=== PATIENT | female | born 1935 | race African-American/Black ===

== ENCOUNTER 2016-10-13 16:53 | Inpatient (IN) | payer OTHER, MEDICAID ==
--- NOTE | 2016-10-13 17:12 | ED Physician Chart ---
Chief Complaint/HPI - Patient Information Date Seen:: 10/13/16 Time Seen:: 17:00 Chief Complaint:: physical aggression History of Present Illness:: Patient was placed on a psychiatric hold and her longterm facility. It states on the hold the patient is paranoid and has been physically aggressive striking others. Historian:: Patient, EMS Review:: Nurse's Note Reviewed Review of Systems - Review of Systems General/Constitutional: No fever, No chills Skin: No skin lesions Head: No headache Eyes: No loss of vision ENT: No earache, No sore throat Neck: No neck pain Cardio Vascular: No chest pain Pulmonary: No SOB GI: No nausea, No vomiting G/U: No dysuria Musculoskeletal: No bone or joint pain, No muscle pain Endocrine: No polyuria Psychiatric: Prior psych history Hematopoietic: No bruising Allergic/Immuno: No urticaria Neurological: No syncope, Confusion Past Medical History - Past Medical History Past Medical History: HTN, DM, Dementia, Other (peripheral vascular disease; anxiety; psychosis) Family History: Diabetes Melitus Social History: Non Smoker, No Alcohol, Care Facility Surgical History: None Family Medical History - Family Member Mother History Unknown: Yes Physical Exam - Physical Examination General/Constitutional: Well-developed, well-nourished, Alert, No distress Other Gen/Cons comments:: Patient is confused; she does not know the year Head: Atraumatic Eyes: Lids, conjuctiva normal, PERRL Skin: Nl inspection, No rash ENMT: External ears, nose nl, TM canals nl, Nasal exam nl, Oropharynx nl, Tonsils nl Other ENMT comments:: Upper and lower dentures Neck: No nuchal rigidity Respiratory: Nl effort/Exclusion, Clear to Auscultation, No Wheeze/Rhonchi/Rales Cardio Vascular: RRR, No murmur, gallop, rubs GI: No tenderness/rebounding/guarding, No organomegaly, No hernia : No CVA tenderness Extremities: Normal digits & nails Neuro/Psych: No focal deficits Misc: Normal back Labs/Radiology/EKG Results - Lab Results Results: Laboratory Results - last 24 hr 10/13/16 10/13/16 10/13/16 16:23 16:23 16:23 WBC 7.1 RBC 4.44 Hgb 13.3 Hct 39.9 MCV 89.9 MCH 30.1 MCHC Differential 33.5 RDW 12.7 Plt Count 166 MPV 8.3 Neutrophils % 56.4 Lymphocytes % 35.3 Monocytes % 5.9 Eosinophils % 2.2 Basophils % 0.2 Sodium 139 Potassium 3.7 Chloride 107 Carbon Dioxide 26.0 Anion Gap 9.7 BUN 19 Creatinine 1.3 H Est GFR ( Amer) TNP Est GFR (Non-Af Amer) TNP BUN/Creatinine Ratio 14.6 Glucose 118 H Calcium 10.3 Total Bilirubin 0.6 AST 18 ALT 11 Alkaline Phosphatase 190 H Total Protein 7.0 Albumin 4.0 Globulin 3.0 Albumin/Globulin Ratio 1.3 TSH 0.21 L - EKG Interpretations Rate & Rhythm: NSR [place]: left axis Comments:: old anterior-septal [place] ED Septic Shock - . Is Septic Shock (SBP<90, OR Lactate>4 mmol\L) present?: No Reassessment (Disposition) - Reassessment Reassessment Condition:: Unchanged - Diagnosis Diagnosis:: dementia with combative behavior - Patient Disposition Admitted to:: [facility] Admitting Medical Physician:: Jean-Paul Dugan Admitting Psych Physician:: Goldy Gunter Condition at Disposition:: Stable, Unchanged
[2016-10-13 17:31] LABS: % BASOPHILS 0.2 % (0.0-2.0); % EOSINOPHILS 2.2 % (0.0-5.0); % LYMPHOCYTES 35.3 % (20.0-50.0); % MONOCYTES 5.9 % (2.0-10.0); % NEUTROPHILS 56.4 % (40.0-80.0); HEMATOCRIT 39.9 % (35.0-45.0); HEMOGLOBIN 13.3 gm/dL (11.7-16.1); MEAN CELL VOLUME 89.9 fl (81-100); MEAN CORPUSCULAR HEMOGLOBIN 30.1 pg (27.0-31.0); MEAN CORPUSCULAR HGB CONC 33.5 pg (28.0-36.0); MEAN PLATELET VOLUME 8.3 fl; PLATELET COUNT 166 Th/cmm (150-400); RED BLOOD COUNT 4.44 Mil/cmm (3.80-5.20); RED CELL DISTRIBUTION WIDTH 12.7 % (11.5-20.0); WHITE BLOOD COUNT 7.1 Th/cmm (4.8-10.8)
[2016-10-13 17:45] LABS: ALB/GLOB RATIO 1.3 (1.0-1.8); ALKALINE PHOSPHATASE 190 U/L (34-104); ANION GAP 9.7 (7.0-16.0); BILIRUBIN,TOTAL 0.6 mg/dL (0.3-1.0); BUN - UREA NITROGEN 19 mg/dL (7-25); BUN/CREATININE RATIO 14.6; CALCIUM SERUM 10.3 mg/dL (8.6-10.3); CHLORIDE 107 mEq/L (98-107); CREATININE - SERUM 1.3 mg/dL (0.6-1.2); GLUCOSE 118 mg/dL (70-105); POTASSIUM SERUM 3.7 mEq/L (3.5-5.1); SGOT 18 U/L (13-39); SGPT/ALT 11 U/L (7-52); SODIUM SERUM 139 mEq/L (136-145)
[2016-10-13 19:42] LABS: URINE BILIRUBIN NEGATIVE (NEGATIVE); URINE BLOOD NEGATIVE (NEGATIVE); URINE COLOR YELLOW; URINE GLUCOSE (UA) NEGATIVE (NEGATIVE); URINE KETONE TRACE mg/dL (NEGATIVE); URINE PH 6.5; URINE PROTEIN TRACE mg/dL (NEGATIVE)
[2016-10-13 19:43] LABS: URINE BACTERIA FEW /hpf (NONE SEEN); URINE EPITHELIAL CELLS OCCASIONAL /lpf (FEW); URINE RBC 0-2 /hpf (0-5); URINE WBC 0-2 /hpf (0-5)
[2016-10-13] MEDS ORDERED: Magnesium Hydroxide (MOM) 30 mL UDC PO PRN (22:03)
[2016-10-13] MEDS ORDERED: Fleet Enema 135 mL RC SCH (22:15)
--- NOTE | 2016-10-14 04:16 | Admit Criteria Form ---
Admit Criteria Forms - Admit Criteria Diagnosis: PSYCHIATRIC DISORDERS (Place 'X' for any and all applicable criteria): Ongoing inpatient care may be needed for 1 or more of the following(1)(2)(3)(4)( 6)(7)(8): [X]I. Danger to self or others not manageable at lower level of care. [ ]II. Grave disability (eg, inability to perform self care necessary at lower level of care) [ ]III. Agitation or inappropriate behavior interfering with care for primary condition (eg, attempting to discontinue lines or drains prematurely, unable to cooperate with respiratory care) [ ]IV. Severe disability or disorder indicated by ALL of the following: [ ]a) Severe behavioral health disorder-related symptoms or condition indicated by 1 or more of the following: [ ]i) Severe problem with cognition, memory, judgment, or impulse control [ ]ii) Severe clinical manifestations (eg, hallucinations, delusions, other acute psychotic symptoms, silvia, extreme agitation or anxiety) [ ]b) Patient management at lower level of care is not feasible until acute intervention or modification is initiated. Extended stay beyond goal length of stay for the primary condition may be needed until ALLof the following are present(1)(2)(3)(4)7)54)(23): [ ]a) Danger to self or others is absent or manageable at lower level of care [ ]b) Behavior crisis management, including physical or chemical restraints, is required and is not available at a lower level of care. [ ]c) Behavioral symptoms (e.g., agitation, somnolence, inappropriate behavior) are present, and are not manageable at a lower level of care. [ ]d) Patient cannot understand follow-up treatment and crisis plan. [ ]e) Provider and supports are sufficiently available at lower level of care. [ ]f) Patient can participate (e.g., verify absence of plan for harm) and is in needed of monitoring. The original [facility] content created by [facility] [email or web address] has been revised. The portions of the content which have been revised are identified through the use of italic text or in bold, and [facility] [employer] has neither reviewed nor approved the modified material. All other unmodified content is copyright [email or web address]. Please see references footnoted in the original [facility] edition 2017 Admit Criteria Met?: Yes
[2016-10-14] MEDS ORDERED: Fleet Enema 135 mL RC PRN (04:50)
--- NOTE | 2016-10-14 08:11 | Consultation ---
DATE OF CONSULTATION: 10/14/2016 PSYCHIATRIC CONSULT PHYSICIAN: Dr. Dugan. LOMBARDI DEVELOPER: Dr. Frazier. REASON FOR THE CONSULT: Agitation. HISTORY OF PRESENT ILLNESS: The patient is an 81-year-old female who was transferred from a intermediate because of increased agitation and irritability. The patient was admitted to the medical floor because of some irregularity with her heart. The patient has been anxious and easily agitated. The patient also has episodes of yelling and screaming. PAST PSYCHIATRIC HISTORY: The patient has history of dementia. PAST MEDICAL HISTORY: The patient has congestive heart failure. SOCIAL HISTORY: The patient lives in a intermediate. No known alcohol or drug use. MENTAL STATUS EXAM: The patient appears her stated age. Currently, seems to be calmer. Seems to be confused. Thought processes are with poverty of speech, but she seems to be actively responding. The patient did not answer questions regarding hallucinations or delusions, but seemed to be responding talking to self. The patient is alert, but disoriented to time, place, person and situation. Impaired immediate, recent, and remote memories. Poor insight and judgment. ASSESSMENT: PRIMARY DIAGNOSIS: Unspecified diagnosis. TREATMENT PLAN: We will monitor the patient's behavior closely. Also, we will start the patient on a small dose of Risperdal and we will monitor the dose. We will follow up. Thanks, Dr. Dugan. [facility]# [id number]
--- NOTE | 2016-10-14 14:33 | Cardiology ---
10/14/[address] Dugan. M-MODE ECHOCARDIOGRAM: Mitral valve, anterior leaflet of mitral valve shows normal excursion, EF velocity. Posterior leaflet of mitral valve shows normal excursion. Left ventricular posterior wall shows increased thickness, normal excursion. Interventricular septum shows increased thickness, normal excursion, hypertrophy of the left ventricle, ejection fraction 60%. Left atrium normal. Aortic root shows normal dimension, normal excursion of aortic leaflets. CONCLUSION: Hypertrophy of the left ventricle, ejection fraction 60%. 2D ECHO: Long axis view showed normal sized left ventricle with hypertrophy of the left ventricle. Left atrium normal. Aortic root showed normal dimension, normal excursion of aortic leaflets. Short axis view of mitral valve normal. Short axis view of aortic valve normal. Apical four chamber view showed normal sized left ventricle, left atrium, right ventricle, right atrium, ____ mitral valve, ejection fraction 60%. CONCLUSION: Hypertrophy of the left ventricle, ejection fraction 60%. Doppler study shows prominent A wave consistent with poor compliance of left ventricle, trace mitral regurgitation, trace tricuspid regurgitation, trace pulmonary regurgitation. [facility]# [id number]
--- NOTE | 2016-10-14 14:52 | History & Physical ---
ADMIT DATE: 10/13/2016 HISTORY OF PRESENT ILLNESS: This is a very well known patient for me from [place] and apparently the patient was having very severe agitation and very aggressive behavior was sent to the Emergency Room. The patient ____ and the patient had some EKG changes on EKG. The patient was admitted to the medical floor for medical evaluation and ____ psych evaluation. Difficult to get any ____. PAST MEDICAL HISTORY: History of hypertension, diabetes, dementia, peripheral vascular disease and history of psychosis. PHYSICAL EXAMINATION: GENERAL: Well-developed, well-nourished female patient, confused. HEAD: Normal. ENT: Normal. NECK: Supple, nontender. LUNGS: Clear. CARDIOVASCULAR SYSTEM: S1, S2 heard. ABDOMEN: Soft. Bowel sounds are heard. CENTRAL NERVOUS SYSTEM: Grossly normal. LABORATORY DATA: Hemoglobin was 13.3 and white count was 7.1. The patient's EKG showed some changes. DIAGNOSES: Acute aggressive behavior, psychosis, history of hypertension, history of diabetes, history of dementia, history of peripheral vascular disease ____ and EKG changes. The patient was admitted and ____, Dr. Jc Piña see the patient for cardiology and I will work her up to rule out sepsis and I will have Dr. Frazier see the patient. I will follow along with him. JOB# [id number]
[2016-10-14 16:27] LABS: % BASOPHILS 0.1 % (0.0-2.0); % EOSINOPHILS 2.4 % (0.0-5.0); % LYMPHOCYTES 45.4 % (20.0-50.0); % MONOCYTES 7.8 % (2.0-10.0); % NEUTROPHILS 44.3 % (40.0-80.0); HEMATOCRIT 41.2 % (35.0-45.0); HEMOGLOBIN 13.7 gm/dL (11.7-16.1); MEAN CELL VOLUME 89.2 fl (81-100); MEAN CORPUSCULAR HEMOGLOBIN 29.6 pg (27.0-31.0); MEAN CORPUSCULAR HGB CONC 33.2 pg (28.0-36.0); MEAN PLATELET VOLUME 8.4 fl; PLATELET COUNT 165 Th/cmm (150-400); RED BLOOD COUNT 4.62 Mil/cmm (3.80-5.20); RED CELL DISTRIBUTION WIDTH 12.7 % (11.5-20.0); WHITE BLOOD COUNT 6.8 Th/cmm (4.8-10.8)
[2016-10-14 16:32] LABS: BUN - UREA NITROGEN 16 mg/dL (7-25); CALCIUM SERUM 9.9 mg/dL (8.6-10.3); CARBON DIOXIDE 26.9 mEq/L (21.0-31.0); CHLORIDE 108 mEq/L (98-107); CHOLESTEROL 205 mg/dL (<200); GLUCOSE 118 mg/dL (70-105); POTASSIUM SERUM 3.9 mEq/L (3.5-5.1); SODIUM SERUM 141 mEq/L (136-145); TRIGLYCERIDES 74 mg/dL (<150)
--- NOTE | 2016-10-14 22:00 | Consultation ---
DATE OF CONSULTATION: 10/13/[address] Dugan. HISTORY AND PHYSICAL: This is an 81-year-old female patient who had aggressive behavior. Following this, the patient was brought to the Emergency Room. The patient complained of chest pain. The patient is admitted. Cardiac consult requested. PAST MEDICAL HISTORY: Hypertension, diabetes mellitus type 2, dementia, diabetic peripheral vascular disease, psychosis. FAMILY HISTORY: Unremarkable. SOCIAL HISTORY: No history of smoking, alcohol abuse. ALLERGIES: None. PHYSICAL EXAMINATION: VITAL SIGNS: Blood pressure 130/80, pulse 70, respirations 20. HEAD: Normocephalic. No lumps or bumps. EYES: Pupils equal, reactive to light. Fundi show AV nicking, sclerae white, conjunctivae pink. NECK: Carotid 2+. Normal upstroke. JVD 10 cm above sternal angle. Thyroid not palpable. Lymph nodes not palpable. CHEST: Shows increased AP diameter. No kyphosis or scoliosis. LUNGS: Bilateral bronchovesicular breath sounds. HEART: PMI, fifth intercostal space with lateral to midclavicular line. S1, S2. No S3, S4. Systolic murmur, grade 2/6, lower left sternal border without radiation. ABDOMEN: Soft. Liver, spleen not palpable. No organomegaly. Bowel sounds are active. NEUROLOGIC: Unremarkable. EXTREMITIES: Peripheral pulses 2+. No pedal edema. CLINICAL IMPRESSION: Apical chest pain, hypertension, diabetes mellitus type 2, dementia, diabetic peripheral vascular disease, psychosis. PLAN: We will get troponin level, EKG, echocardiogram, have a psychiatric evaluation. [facility]# [id number]
[2016-10-15 07:07] LABS: CHOLESTEROL 177 mg/dL (<200); TRIGLYCERIDES 54 mg/dL (<150)
--- NOTE | 2016-10-15 19:56 | Progress Notes ---
DATE: 10/15/2016 SUBJECTIVE: The patient was seen in her room, lying in the bed. The patient is a poor historian due to medical condition. The patient does want 1 sitter due to episodes of agitation and confusion, currently the patient appears to be comfortable, in no acute distress. OBJECTIVE: VITAL SIGNS: Temperature 98.3, heart rate 72, blood pressure 132/71, respiratory rate of 16, 96% on room air. HEENT: Head is atraumatic and normocephalic. Eyes: Bilateral conjunctivae are clear. Bilateral pupils are equally round and reactive. NECK: Supple. No JVD. CARDIOVASCULAR: S1 and S2, without murmur. PULMONARY: Clear to auscultation. GASTROINTESTINAL: Soft and nontender without guarding. Positive bowel sounds. MUSCULOSKELETAL: No edema, no clubbing, no cyanosis. IMPRESSION: 1.Acute psychosis. 2.Hypertension. 3.History of diabetes. 4.Dementia. 5.Peripheral vascular disease. 6.Osteoarthritis. PLAN: We will continue to monitor the patient's condition. We will continue patient to be on telemetry status. We will follow up with the ____ to monitor the patient's ____ status and we will follow up with a psychiatrist to monitor the patient's behavioral treatment. Plans were discussed with Dr. Dugan. JOB# [id number]
[2016-10-16 03:29] VITALS: BP 122/50
--- NOTE | 2016-10-16 09:24 | General Progress Note ---
Subjective - Review of Systems Events since last encounter: patient continues to be irritable and aggressive Objective - Results Result Diagrams: 10/14/16 16:00 10/14/16 16:00 Recent Labs: Laboratory Last Values WBC 6.8 Th/cmm (4.8-10.8) 10/14/16 16:00 RBC 4.62 Mil/cmm (3.80-5.20) 10/14/16 16:00 Hgb 13.7 gm/dL (11.7-16.1) 10/14/16 16:00 Hct 41.2 % (35.0-45.0) 10/14/16 16:00 MCV 89.2 fl (81-100) 10/14/16 16:00 MCH 29.6 pg (27.0-31.0) 10/14/16 16:00 MCHC Differential 33.2 pg (28.0-36.0) 10/14/16 16:00 RDW 12.7 % (11.5-20.0) 10/14/16 16:00 Plt Count 165 Th/cmm (150-400) 10/14/16 16:00 MPV 8.4 fl 10/14/16 16:00 Neutrophils % 44.3 % (40.0-80.0) 10/14/16 16:00 Lymphocytes % 45.4 % (20.0-50.0) 10/14/16 16:00 Monocytes % 7.8 % (2.0-10.0) 10/14/16 16:00 Eosinophils % 2.4 % (0.0-5.0) 10/14/16 16:00 Basophils % 0.1 % (0.0-2.0) 10/14/16 16:00 Sodium 141 mEq/L (136-145) 10/14/16 16:00 Potassium 3.9 mEq/L (3.5-5.1) 10/14/16 16:00 Chloride 108 mEq/L (98-107) H 10/14/16 16:00 Carbon Dioxide 26.9 mEq/L (21.0-31.0) 10/14/16 16:00 Anion Gap 10.0 (7.0-16.0) 10/14/16 16:00 BUN 16 mg/dL (7-25) 10/14/16 16:00 Creatinine 1.0 mg/dL (0.6-1.2) 10/14/16 16:00 Est GFR ( Amer) TNP 10/14/16 16:00 Est GFR (Non-Af Amer) TNP 10/14/16 16:00 BUN/Creatinine Ratio 16.0 10/14/16 16:00 Glucose 118 mg/dL (70-105) H 10/14/16 16:00 Calcium 9.9 mg/dL (8.6-10.3) 10/14/16 16:00 Total Bilirubin 0.6 mg/dL (0.3-1.0) 10/13/16 16:23 AST 18 U/L (13-39) 10/13/16 16:23 ALT 11 U/L (7-52) 10/13/16 16:23 Alkaline Phosphatase 190 U/L (34-104) H 10/13/16 16:23 Troponin I 0.01 ng/mL (0.01-0.05) 10/15/16 06:26 Total Protein 7.0 gm/dL (6.0-8.3) 10/13/16 16:23 Albumin 4.0 gm/dL (3.7-5.3) 10/13/16 16:23 Globulin 3.0 gm/dL 10/13/16 16:23 Albumin/Globulin Ratio 1.3 (1.0-1.8) 10/13/16 16:23 Triglycerides 54 mg/dL (<150) 10/15/16 06:26 Cholesterol 177 mg/dL (<200) 10/15/16 06:26 LDL Cholesterol Direct 121 mg/dL (75-193) 10/15/16 06:26 HDL Cholesterol 42 mg/dL (23-92) 10/15/16 06:26 TSH 0.19 uIU/ml (0.34-5.60) L 10/14/16 16:00 Urine Source CLEAN C 10/13/16 19:00 Urine Color YELLOW 10/13/16 19:00 Urine Clarity CLEAR (CLEAR) 10/13/16 19:00 Urine pH 6.5 10/13/16 19:00 Ur Specific [place] 1.020 (1.005-1.030) 10/13/16 19:00 Urine Protein TRACE mg/dL (NEGATIVE) 10/13/16 19:00 Urine Glucose (UA) NEGATIVE mg/dL (NEGATIVE) 10/13/16 19:00 Urine Ketones TRACE mg/dL (NEGATIVE) 10/13/16 19:00 Urine Blood NEGATIVE (NEGATIVE) 10/13/16 19:00 Urine Nitrate NEGATIVE (NEGATIVE) 10/13/16 19:00 Urine Bilirubin NEGATIVE (NEGATIVE) 10/13/16 19:00 Urine Urobilinogen 1.0 E.U./dL (0.2 - 1.0) 10/13/16 19:00 Ur Leukocyte Esterase NEGATIVE (NEGATIVE) 10/13/16 19:00 Urine RBC 0-2 /hpf (0-5) 10/13/16 19:00 Urine WBC 0-2 /hpf (0-5) 10/13/16 19:00 Ur Epithelial Cells OCCASIONAL /lpf (FEW) 10/13/16 19:00 Urine Bacteria FEW /hpf (NONE SEEN) 10/13/16 19:00 RPR Titer 10/13/16 16:23 RPR REACTIVE (NONREACTIVE) H 10/13/16 16:23 - Physical Exam Vitals and I&O: Vital Signs Temp 97.5 F 10/16/16 04:00 Pulse 61 10/16/16 08:36 Resp 18 10/16/16 04:00 BP 129/70 10/16/16 08:36 Pulse Ox 99 10/16/16 04:00 Intake & Output 10/15/16 10/16/16 10/16/16 18:59 06:59 18:59 Intake Total 1230 200 Balance 1230 200 Weight (lbs) 63.73 kg 62.596 kg Intake: Oral 1230 200 Other: # Voids 4 2 # Bowel Movements 0 0 Active Medications: Current Medications Acetaminophen (Tylenol) 650 mg PO Q4HR PRN PRN Reason: Pain or Fever >101 Stop: 12/12/16 22:02 Amlodipine Besylate (Norvasc) 10 mg PO DAILY [facility] Stop: 12/13/16 08:59 Last Admin: 10/16/16 08:36 Dose: 10 mg Aspirin (Ecotrin) 81 mg PO DAILY [facility] Stop: 12/13/16 08:59 Last Admin: 10/16/16 08:36 Dose: 81 mg Atenolol (Tenormin) 50 mg PO BID [facility] Stop: 12/13/16 08:59 Last Admin: 06/25/17 08:36 Dose: 50 mg Bisacodyl (Dulcolax 10 Mg Supp) 10 mg RC DAILY PRN PRN Reason: Constipation Stop: 12/12/16 22:02 Famotidine (Pepcid) 40 mg PO DAILY [facility] Stop: 12/13/16 08:59 Last Admin: 10/16/16 08:35 Dose: 40 mg Lorazepam (Ativan) 1 mg IVP Q6HR PRN; Protocol PRN Reason: Agitation Stop: 12/12/16 21:56 Magnesium Hydroxide (Milk Of Magnesia) 30 ml PO HS PRN PRN Reason: Constipation Stop: 12/12/16 22:02 Risperidone (Risperdal) 0.25 mg PO HS [facility] PRN Reason: Protocol Stop: 12/13/16 20:59 Last Admin: 10/15/16 20:41 Dose: 0.25 mg Sodium Phosphate (Fleet Enema) 135 ml RC Q48HR PRN PRN Reason: Constipation Stop: 12/13/16 04:49 General: No acute distress HEENT: Atraumatic Cardiovascular: Regular rate Abdomen: Bowel sounds Assessment/Plan - Plan Plan: as per psych as problems arise will continue to monitor
--- NOTE | 2016-10-16 23:38 | Consultation ---
DATE OF CONSULTATION: 10/14/[address] Dugan. HISTORY AND PHYSICAL: This is an 81-year-old female patient who had been having aggressive behavior. Following this, the patient was brought to the Emergency Room. The patient complained of chest pain. At this time, Cardiology consult was requested. PAST MEDICAL HISTORY: Diabetes, hypertension, dementia, diabetic peripheral vascular disease, psychosis, and osteoporosis. FAMILY HISTORY: Unremarkable. SOCIAL HISTORY: No history of smoking or alcohol abuse. ALLERGIES: No known allergies. PHYSICAL EXAMINATION: VITAL SIGNS: Blood pressure 130/80, pulse 88, respirations 28. HEAD: Normocephalic. No lumps or bumps. EYES: Pupils equal, reactive to light. Fundi show AV nicking, sclerae white, conjunctivae pink. NECK: Carotid 2+. Normal upstroke. JVD flat. Thyroid not palpable. Lymph nodes not palpable. CHEST: Shows increased AP diameter. No kyphosis or scoliosis. LUNGS: Bilateral bronchovesicular breath sounds. HEART: PMI fifth intercostal space lateral to midclavicular line. S1 and S2. No S3, S4. Systolic murmur, grade 2/6, lower left sternal border without radiation. ABDOMEN: Soft. Liver, spleen not palpable. No organomegaly. Bowel sounds are active. NEUROLOGIC: Unremarkable. EXTREMITIES: Peripheral pulses 2+. No pedal edema. CLINICAL IMPRESSION: Atypical chest pain, hypertension, diabetes mellitus type 2, dementia, diabetic peripheral vascular disease, psychosis, and osteoporosis. PLAN: We will get troponin level, EKG and echocardiogram. [facility]# [id number]
--- NOTE | 2016-10-17 16:06 | General Progress Note ---
Subjective - Review of Systems Events since last encounter: no change from yesterday Objective - Results Result Diagrams: 10/14/16 16:00 10/14/16 16:00 Recent Labs: Laboratory Last Values WBC 6.8 Th/cmm (4.8-10.8) 10/14/16 16:00 RBC 4.62 Mil/cmm (3.80-5.20) 10/14/16 16:00 Hgb 13.7 gm/dL (11.7-16.1) 10/14/16 16:00 Hct 41.2 % (35.0-45.0) 10/14/16 16:00 MCV 89.2 fl (81-100) 10/14/16 16:00 MCH 29.6 pg (27.0-31.0) 10/14/16 16:00 MCHC Differential 33.2 pg (28.0-36.0) 10/14/16 16:00 RDW 12.7 % (11.5-20.0) 10/14/16 16:00 Plt Count 165 Th/cmm (150-400) 10/14/16 16:00 MPV 8.4 fl 10/14/16 16:00 Neutrophils % 44.3 % (40.0-80.0) 10/14/16 16:00 Lymphocytes % 45.4 % (20.0-50.0) 10/14/16 16:00 Monocytes % 7.8 % (2.0-10.0) 10/14/16 16:00 Eosinophils % 2.4 % (0.0-5.0) 10/14/16 16:00 Basophils % 0.1 % (0.0-2.0) 10/14/16 16:00 Sodium 141 mEq/L (136-145) 10/14/16 16:00 Potassium 3.9 mEq/L (3.5-5.1) 10/14/16 16:00 Chloride 108 mEq/L (98-107) H 10/14/16 16:00 Carbon Dioxide 26.9 mEq/L (21.0-31.0) 10/14/16 16:00 Anion Gap 10.0 (7.0-16.0) 10/14/16 16:00 BUN 16 mg/dL (7-25) 10/14/16 16:00 Creatinine 1.0 mg/dL (0.6-1.2) 10/14/16 16:00 Est GFR ( Amer) TNP 10/14/16 16:00 Est GFR (Non-Af Amer) TNP 10/14/16 16:00 BUN/Creatinine Ratio 16.0 10/14/16 16:00 Glucose 118 mg/dL (70-105) H 10/14/16 16:00 Calcium 9.9 mg/dL (8.6-10.3) 10/14/16 16:00 Total Bilirubin 0.6 mg/dL (0.3-1.0) 10/13/16 16:23 AST 18 U/L (13-39) 10/13/16 16:23 ALT 11 U/L (7-52) 10/13/16 16:23 Alkaline Phosphatase 190 U/L (34-104) H 10/13/16 16:23 Troponin I 0.01 ng/mL (0.01-0.05) 10/15/16 06:26 Total Protein 7.0 gm/dL (6.0-8.3) 10/13/16 16:23 Albumin 4.0 gm/dL (3.7-5.3) 10/13/16 16:23 Globulin 3.0 gm/dL 10/13/16 16:23 Albumin/Globulin Ratio 1.3 (1.0-1.8) 10/13/16 16:23 Triglycerides 54 mg/dL (<150) 10/15/16 06:26 Cholesterol 177 mg/dL (<200) 10/15/16 06:26 LDL Cholesterol Direct 121 mg/dL (75-193) 10/15/16 06:26 HDL Cholesterol 42 mg/dL (23-92) 10/15/16 06:26 TSH 0.19 uIU/ml (0.34-5.60) L 10/14/16 16:00 Urine Source CLEAN C 10/13/16 19:00 Urine Color YELLOW 10/13/16 19:00 Urine Clarity CLEAR (CLEAR) 10/13/16 19:00 Urine pH 6.5 10/13/16 19:00 Ur Specific [place] 1.020 (1.005-1.030) 10/13/16 19:00 Urine Protein TRACE mg/dL (NEGATIVE) 10/13/16 19:00 Urine Glucose (UA) NEGATIVE mg/dL (NEGATIVE) 10/13/16 19:00 Urine Ketones TRACE mg/dL (NEGATIVE) 10/13/16 19:00 Urine Blood NEGATIVE (NEGATIVE) 10/13/16 19:00 Urine Nitrate NEGATIVE (NEGATIVE) 10/13/16 19:00 Urine Bilirubin NEGATIVE (NEGATIVE) 10/13/16 19:00 Urine Urobilinogen 1.0 E.U./dL (0.2 - 1.0) 10/13/16 19:00 Ur Leukocyte Esterase NEGATIVE (NEGATIVE) 10/13/16 19:00 Urine RBC 0-2 /hpf (0-5) 10/13/16 19:00 Urine WBC 0-2 /hpf (0-5) 10/13/16 19:00 Ur Epithelial Cells OCCASIONAL /lpf (FEW) 10/13/16 19:00 Urine Bacteria FEW /hpf (NONE SEEN) 10/13/16 19:00 RPR Titer 10/13/16 16:23 RPR REACTIVE (NONREACTIVE) H 10/13/16 16:23 - Physical Exam Vitals and I&O: Vital Signs Temp 98.4 F 10/17/16 12:00 Pulse 60 10/17/16 12:00 Resp 18 10/17/16 16:00 BP 128/70 10/17/16 12:00 Pulse Ox 99 10/17/16 12:00 Intake & Output 10/16/16 10/17/16 10/17/16 18:59 06:59 18:59 Intake Total 150 200 130 Balance 150 200 130 Weight (lbs) 62.596 kg 64.41 kg 64.41 kg Intake: Oral 150 200 130 Other: # Voids 1 2 1 Active Medications: Current Medications Acetaminophen (Tylenol) 650 mg PO Q4HR PRN PRN Reason: Pain or Fever >101 Stop: 12/12/16 22:02 Amlodipine Besylate (Norvasc) 10 mg PO DAILY [facility] Stop: 12/13/16 08:59 Last Admin: 10/17/16 10:00 Dose: 10 mg Aspirin (Ecotrin) 81 mg PO DAILY [facility] Stop: 12/13/16 08:59 Last Admin: 10/17/16 10:00 Dose: 81 mg Atenolol (Tenormin) 50 mg PO BID [facility] Stop: 12/13/16 08:59 Last Admin: 10/17/16 10:00 Dose: 50 mg Bisacodyl (Dulcolax 10 Mg Supp) 10 mg RC DAILY PRN PRN Reason: Constipation Stop: 12/12/16 22:02 Famotidine (Pepcid) 40 mg PO DAILY [facility] Stop: 12/13/16 08:59 Last Admin: 10/17/16 10:00 Dose: 40 mg Lorazepam (Ativan) 1 mg IVP Q6HR PRN; Protocol PRN Reason: Agitation Stop: 12/12/16 21:56 Magnesium Hydroxide (Milk Of Magnesia) 30 ml PO HS PRN PRN Reason: Constipation Stop: 12/12/16 22:02 Risperidone (Risperdal) 0.25 mg PO HS [facility] PRN Reason: Protocol Stop: 12/13/16 20:59 Last Admin: 10/16/16 21:29 Dose: 0.25 mg Sodium Phosphate (Fleet Enema) 135 ml RC Q48HR PRN PRN Reason: Constipation Stop: 12/13/16 04:49 General: No acute distress Cardiovascular: Regular rate Abdomen: Bowel sounds Assessment/Plan - Plan Plan: as per psych as problems arise will continue to monitor
[2016-10-17] MEDS ORDERED: Haloperidol Lactate 5 mg/mL 1mL Vial IM ONE (19:38)
== END 2016-10-17 20:20 | disposition home or self-care (01) | DRG 313 ==
LOC: ER 16:53 → TELE 19:15 → MSI 10-17 10:19
PROVIDERS: ADMIT Internal Medicine; ATTEND Internal Medicine
DX: R07.89 Other chest pain (principal); I25.10 Atherosclerotic heart disease of native coronary artery without angina pectoris; F03.91 Unspecified dementia, unspecified severity, with behavioral disturbance; E11.51 Type 2 diabetes mellitus with diabetic peripheral angiopathy without gangrene; I50.9 Heart failure, unspecified; I11.0 Hypertensive heart disease with heart failure; F29 Unspecified psychosis not due to a substance or known physiological condition; M19.90 Unspecified osteoarthritis, unspecified site; F41.9 Anxiety disorder, unspecified; R94.31 Abnormal electrocardiogram [ECG] [EKG]; M81.0 Age-related osteoporosis without current pathological fracture; Z88.0 Allergy status to penicillin; Z83.3 Family history of diabetes mellitus
CPT/HCPCS: 36415-UA; 80048-TC; 80053-TC; 80061-TC; 81001-TC; 84443-TC; 84484-TC; 85025-TC; 86592-TC; 86593-TC; 86780-90; 93005; J1630; J2060; Z7610